=== PATIENT | male | born 1990 | race African-American/Black ===

== ENCOUNTER 2021-06-15 09:46 | Inpatient (IN) | payer OTHER ==
[~2021-06-15] VITALS: Ht 182.9 cm; Wt 121.6 kg
[2021-06-15] MEDS ORDERED: HydrALAZINE HCL 20 MG/ML VIAL IVP ONE (10:15)
[2021-06-15] MEDS ORDERED: MORPHINE SULFATE 4 MG/ML SYRINGE IVP ONE (10:15)
[2021-06-15 10:45] LABS: COVID AG,FIA SOURCE NASOPHARYNGEAL
[2021-06-15 10:52] LABS: BASOPHILS % (AUTO) 1.1 % (0.0-2.0); EOSINOPHILS % (AUTO) 2.3 % (1.0-6.0); LYMPHOCYTES # (AUTO) 1.2 K/uL (1.0-4.8); LYMPHOCYTES % (AUTO) 40.7 % (22.0-44.0); MEAN CORPUSCULAR HEMOGLOBIN 30.5 pg (26.0-34.0); MEAN CORPUSCULAR VOLUME 92 fL (80-100); MONOCYTES # (AUTO) 0.3 K/uL (0.1-1.0); MONOCYTES % (AUTO) 9.3 % (2.0-9.0); NEUTROPHILS # (AUTO) 1.4 K/uL (1.8-7.7); NEUTROPHILS % (AUTO) 46.6 % (40.0-70.0); PLATELET COUNT (AUTO) 193 K/uL (150-450); RED BLOOD CELL COUNT(AUTO) 6.49 MIL/uL (4.50-5.90); RED CELL DISTRIBUTION WIDTH 14.1 % (11.5-14.5)
[2021-06-15 11:06] LABS: HEMOGLOBIN 19.8 g/dL (13.5-17.5)
[2021-06-15 11:07] LABS: HEMATOCRIT 59.9 % (41-53)
[2021-06-15 11:57] LABS: ANION GAP 6 mmol/L (8-16); CALCIUM, TOTAL 9.7 mg/dL (8.8-10.5); CARBON DIOXIDE 28 mmol/L (22-29); CHLORIDE 101 mmol/L (98-107); CREATININE 1.37 mg/dL (0.60-1.30); GLUCOSE,RANDOM 102 mg/dL (70-110); POTASSIUM 3.8 mmol/L (3.5-5.1); SODIUM SERUM 135 mmol/L (136-145); UREA NITROGEN, BLOOD 12 mg/dL (7-18)
[2021-06-15 11:58] LABS: GLOMERULAR FILTR. RATE CALC > 60 mL/min (>60)
[2021-06-15] MEDS ORDERED: ONDANSETRON HCL 4 MG/2 ML VIAL IVP PRN ×2 (13:45→14:00)
[2021-06-15] MEDS ORDERED: ACETAMINOPHEN 325 MG TABLET PO PRN ×2 (13:45→14:00)
[2021-06-15] MEDS ORDERED: OxyCODONE HCL/ACETAMINOPHEN 5-325 MG TABLET PO PRN (14:00)
[2021-06-15] MEDS ORDERED: SODIUM CHLORIDE 0.9% 1,000 ML IV ONE (14:00)
[2021-06-15] MEDS ORDERED: ZOLPIDEM TARTRATE 5 MG TABLET PO PRN (14:00)
[2021-06-15 14:42] LABS: THYROID STIMULATING HORMONE 1.02 uIU/mL (0.36-3.74)
[2021-06-15] MEDS: CloNIDine HCL 0.1 MG TABLET PO PRN (15:26)
[2021-06-15] MEDS: AmLODIPine BESYLATE 10 MG TABLET PO SCH (16:16)
[2021-06-15 19:05] VITALS: BP 151/94
[2021-06-15] MEDS: DOCUSATE SODIUM 100 MG CAPSULE PO SCH (21:00)
[2021-06-15 22:46] LABS: AMPHET/METH SCREEN,URINE NEGATIVE (NEGATIVE); BARBITURATE SCREEN, URINE NEGATIVE (NEGATIVE); BENZODIAZEPINES SCREEN,URINE NEGATIVE (NEGATIVE); CANNABINOID SCREEN,URINE NEGATIVE (NEGATIVE); COCAINE SCREEN,URINE NEGATIVE (NEGATIVE); METHADONE SCREEN, URINE NEGATIVE (NEGATIVE); OPIATE SCREEN,URINE POSITIVE (NEGATIVE)
[2021-06-15 22:51] LABS: PHENCYCLIDINE SCREEN,URINE NEGATIVE (NEGATIVE)
[2021-06-16] VITALS: BP 154/110
[2021-06-16] MEDS: CloNIDine HCL 0.1 MG TABLET PO PRN (05:49)
[2021-06-16 05:53] VITALS: BP 166/121
[2021-06-16 08:33] VITALS: BP 125/91
[2021-06-16] MEDS: DOCUSATE SODIUM 100 MG CAPSULE PO SCH (09:00)
[2021-06-16] MEDS ORDERED: FAMOTIDINE 20 MG TABLET PO SCH (09:00)
[2021-06-16] MEDS: AmLODIPine BESYLATE 10 MG TABLET PO SCH (09:02)
[2021-06-16] MEDS ORDERED: AMLO-258 PO (09:33)
[2021-06-16 10:40] LABS: BASOPHILS % (AUTO) 0.5 % (0.0-2.0); EOSINOPHILS % (AUTO) 2.1 % (1.0-6.0); LYMPHOCYTES # (AUTO) 1.3 K/uL (1.0-4.8); LYMPHOCYTES % (AUTO) 41.5 % (22.0-44.0); MEAN CORPUSCULAR HEMOGLOBIN 30.4 pg (26.0-34.0); MEAN CORPUSCULAR VOLUME 92 fL (80-100); MONOCYTES # (AUTO) 0.4 K/uL (0.1-1.0); MONOCYTES % (AUTO) 11.8 % (2.0-9.0); NEUTROPHILS # (AUTO) 1.4 K/uL (1.8-7.7); NEUTROPHILS % (AUTO) 44.1 % (40.0-70.0); PLATELET COUNT (AUTO) 193 K/uL (150-450)
[2021-06-16 10:43] LABS: HEMATOCRIT 59.8 % (41-53); HEMOGLOBIN 19.8 g/dL (13.5-17.5)
[2021-06-16 11:15] VITALS: BP_SYST 152; BP_SYST 160; BP_DIAS 103; BP_DIAS 105
== END 2021-06-16 13:30 | disposition home or self-care (01) | DRG 199 ==
LOC: EMS 09:46 → 5S 18:35 → EMS 18:50
PROVIDERS: ADMIT Internal Medicine; ATTEND Internal Medicine
DX: I16.1 Hypertensive emergency (principal); E66.9 Obesity, unspecified; Z20.822 Contact with and (suspected) exposure to COVID-19; F17.210 Nicotine dependence, cigarettes, uncomplicated; I10 Essential (primary) hypertension; Z68.36 Body mass index [BMI] 36.0-36.9, adult
CPT/HCPCS: 70450; 71045; 80048; 84443; 85025; 93005; 99291; J0360; J2270; 36415-L1; 36415-TC